=== PATIENT | male | born 1995 | race Caucasian/White ===

== ENCOUNTER 2020-05-22 09:46 | Emergency (ER) | payer MEDICAID, SELFPAY ==
--- NOTE | ~2020-05-22 | XR_ITS ---
EXAMINATION: XR lumbar spine min 4V DATE: 05/22/2020 10:56 INDICATION: Low back pain. TECHNIQUE: 5 views of lumbar spine were obtained. COMPARISON: None. FINDINGS: There is 8 degrees levocurvature of lumbar spine. There are changes of posterior fusion pro cedure at L4-L5 with pedicle screws. Vertebral body heights are normal. There is mildly decreased dis c height from L2-L3 through L4-L5. The facet joints are unremarkable. IMPRESSION: 1. Mild lumbar spondylosis. 2. Posterior fusion procedure at L4-L5. Reviewed, dictated and finalized at location A.
[2020-05-22 09:55] VITALS: BP 148/95; PULSE 92; RESP 20; TEMP 36.4; O2SAT 100
[2020-05-22] MEDS: diazePAM 5 MG TABLET PO (10:44)
[2020-05-22] MEDS: ACETAMINOPHEN 500 MG TABLET 1000 MG PO (10:44)
--- NOTE | 2020-05-22 11:00 | PC.NURSE ---
Entered patients room and noted patients friend in room wiping down his legs with PDI wipes. Advised those are not for skin contact.
--- NOTE | 2020-05-22 11:01 | ED.BACK ---
HPI - Back Pain/Injury General Chief Complaint: Back Pain/Injury Stated Complaint: Fall, Back Injury Time Seen by Provider: 05/22/20 10:09 Source: patient Mode of arrival: ambulatory Limitations: no limitations History of Present Illness HPI Narrative: Patient is a 24-year-old male who presents to emergency department for evaluation of low back pain that began this morning was getting off of the couch when he fell to his side patient has a history of lumbar fusion notes that he has now had pain from the midline to the left of the lumbar region without other radiation radicular symptoms or paresthesias noted. Symptoms worsen with activity and movement. Patient notes he has not taken anything for his pain. Patient notes that he was going to go and smoke marijuana but instead came here first. Patient also notes that he typically needs strong narcotics IV for his back pain. Patient denies other injuries or complaints specifically no loss of consciousness syncope. On arrival patient sitting in the room in no distress Related Data Home Medications Medication Instructions Recorded Confirmed Klonopin 05/22/20 Allergies Allergy/AdvReac Type Severity Reaction Status Date / Time ibuprofen Allergy Anaphylaxis Verified 05/22/20 10:05 ketorolac [From Toradol] Allergy Anaphylaxis Verified 05/22/20 10:05 Review of Systems Review of Systems: All systems reviewed & are unremarkable except as noted in HPI and below PMFSH Surgical History Surgical History History of lumbar fusion Social History Social History Substance use type: marijuana Gender identity (if verbalized by the patient): Male Exam Narrative: Exam Narrative: GENERAL: Well-appearing, obese, and in no acute distress. HEAD: Normocephalic, atraumatic. EYES: PERRLA and EOMI. ENT: Nares clear, no rhinorrhea or epistaxis. Mucous membranes moist. Oropharynx without tonsillar hypertrophy exudate or other lesions. NECK: Supple. No adenopathy or masses. CHEST: Clear to auscultation. No respiratory distress. No wheezes rales or rhonchi HEART: Regular rate and rhythm. No murmur heard. Normal peripheral pulses. EXTREMITIES: Normal range of motion. No edema. Midline and left paraspinal tenderness SKIN: Warm, dry, no rash. NEURO: No focal deficits. Alert and oriented x3. Cranial nerves II through XII grossly intact. Motor and sensory intact and symmetrical in the extremities PSYCH: Normal mood and affect. Course Course Emergency Course: Patient was given Tylenol and Valium for his pain initially complaining that the Tylenol not would not be strong enough for him. Patient again in no distress sitting comfortably in the room. Patient will be sent for x-ray at this time. Vital Signs Vital signs: Vital Signs Temperature 97.5 F L 05/22/20 09:55 Pulse Rate 92 05/22/20 09:55 Respiratory Rate 05/22/20 09:55 Blood Pressure 148/95 H 05/22/20 09:55 Pulse Oximetry 100 05/22/20 09:55 Temperature 97.5 F L 05/22/20 09:55 Pulse Rate 92 05/22/20 09:55 Respiratory Rate 05/22/20 09:55 Blood Pressure 148/95 H 05/22/20 09:55 Pulse Oximetry 100 05/22/20 09:55 MDM - Back Pain/Injury MDM Narrative Medical decision making narrative: Patients pain is positional in nature and localized to back without signs of cord compression or cauda equina based on neurological exam, skeletal exam and history. No fever or other significant factors to suggest osteomyelitis or spinal epidural abscess. No symptoms or signs to suggest pain is referred from abdominal or / cardiopulmonary sources. No pulsatile masses noted on exam. Patient ambulates with steady gait and is stable for outpatient management given case findings. Imaging Data Radiologist's impression: ITS Impressions Lumbar Spine X-Ray 05/22/20 11:04 IMPRESSION: 1. Mild lum
[2020-05-22 11:25] VITALS: TEMP 36.4
== END 2020-05-22 11:25 | disposition home or self-care (01) ==
PROVIDERS: Emergency Provider Emergency Medicine
DX: M54.5 Low back pain (principal); Z98.1 Arthrodesis status; M47.816 Spondylosis without myelopathy or radiculopathy, lumbar region
CPT/HCPCS: 72110; 99283; A9270